=== PATIENT | female | born 1965 | race African-American/Black ===

== ENCOUNTER 2016-07-17 08:19 | Emergency (ER) | payer BC ==
[2016-07-17 08:30] VITALS: BP 128/74; PULSE 88; TEMP 97.7; BMI 33.3
--- NOTE | 2016-07-17 09:36 | PDOC ---
History of Present Illness - General Chief Complaint: Pain, Acute Stated Complaint: RT ARM SWELLING (SPIDER BITE) Time Seen by Provider: 07/17/16 09:15 History Source: Patient Exam Limitations: No Limitations - History of Present Illness Initial Comments: 07/17/16 09:40 51 yr female with spider bite to right elbow 2 weeks ago at work. Pt was on Doxy 100mg bid for 10 days and prednisone. Pt states symptoms imporved, then started to "flare up" again yesterday. Pt has mild redness and swelling to the elbow.no fever or chills. Pt has FROM of the elbow no distress. Severity: Yes: mild Location: reports: extremities (right elbow) Past History - Past Medical History Allergies/Adverse Reactions: Allergies Allergy/AdvReac Type Severity Reaction Status Date / Time No Known Allergies Allergy Verified 07/17/16 08:24 Home Medications: Ambulatory Orders Atorvastatin Ca [Lipitor] 20 mg PO DAILY 08/18/15 Lisinopril 10 mg PO DAILY 08/18/15 Sitagliptin Phos/Metformin HCl [Janumet 50-500 mg Tablet] 1 tab PO BID 08/18/15 Zolpidem Tartrate 10 mg PO HS 08/18/15 Oxycodone HCl/Acetaminophen [Percocet 5-325 mg Tablet] 1 tab PO Q6H PRN #60 tablet MDD 4 09/09/15 Ketorolac Tromethamine [Toradol] 10 mg PO Q6H #20 tablet 09/11/15 Sulfamethoxazole/Trimethoprim [Bactrim Ds Tablet] 1 each PO BID #14 tablet 07/17 Anemia: No Asthma: No Cancer: No Cardiac Disorders: No CVA: No COPD: No CHF: No Dementia: No Diabetes: Yes (X 1 YEAR) GI Disorders: No Disorders: No HTN: No Hypercholesterolemia: Yes Liver Disease: No Seizures: No Thyroid Disease: No - Surgical History Abdominal Surgery: No Appendectomy: No Cardiac Surgery: No Cholecystectomy: No Lung Surgery: No Neurologic Surgery: Yes (left hip replacement 2015) Orthopedic Surgery: Yes (LAMINECTOMY 20 YRS AGO, RIGHT KNEE ARTHROSCOPY) - Psycho/Social/Smoking Cessation Hx Suicidal Ideation: No Smoking History: Former smoker Have you smoked in the past 12 months: No If you are a former smoker, when did you quit?: 2006 Information on smoking cessation initiated: No Hx Alcohol Use: No Drug/Substance Use Hx: No Substance Use Type: None Hx Substance Use Treatment: No Review of Systems - Review of Systems Able to Perform ROS?: Yes Is the patient limited Wolof proficient: No Constitutional: No: Symptoms Reported HEENTM: No: Symptoms Reported Respiratory: No: Symptoms reported Cardiac (ROS): No: Symptoms Reported ABD/GI: No: Symptoms Reported : No: Symptoms Reported Musculoskeletal: Yes: See HPI *Physical Exam - Vital Signs Last Vital Signs Temp Pulse Resp BP Pulse Ox 97.7 F 88 16 128/74 96 07/17/16 08:24 07/17/16 08:24 07/17/16 08:24 07/17/16 08:24 07/17/16 08:24 - Physical Exam General Appearance: Yes: Nourished, Appropriately Dressed HEENT: positive: EOMI, NICK Neck: positive: Supple Respiratory/Chest: positive: Lungs Clear, Normal Breath Sounds Cardiovascular: positive: Regular Rhythm, Regular Rate Gastrointestinal/Abdominal: positive: Normal Bowel Sounds, Soft Musculoskeletal: positive: Normal Inspection Extremity: positive: Normal Capillary Refill, Normal Inspection, Normal Range of Motion, Swelling, Erythema (right elbow, trace swelling, trace erythema, FROM no bony tenderness) Integumentary: positive: Normal Color, Dry, Warm Neurologic: positive: Fully Oriented, Alert, Normal Mood/Affect, Normal Response , Motor Strength 5/5 Medical Decision Making - Medical Decision Making 07/17/16 09:43 cc: right elbow spider bite 2 weeks ago improved with Doxy then started to get worse again yesterday will xray to r/o FB r/o abscess, however ther is no fluctuance or induaration appreciated will place on Bactrim for 7 days continue topical cortiosne for itching pt agrees with plan all questions asked and answered *DC/Admit/Observation/Transfer Diagnosis at time of Disposition: Spider bite Qualifiers: Encounter type: initial encounter Injury intent: accidental or unintentional Qualified Code(s): T63.301A - Toxic effect of unspecified spider venom, accidental (unintentional), initial encounter - Discharge Dispostion Disposition: HOME Condition at time of disposition: Good - Prescriptions Prescriptions: Sulfamethoxazole/Trimethoprim [Bactrim Ds Tablet] 1 each PO BID #14 tablet - Referrals Referrals: Tiffany Huerta MD [Primary Care Provider] - - Patient Instructions Additional Instructions: take bactrim for 7 days apply topical cortisone ointment three times a day 'you can also apply warm moist compresses to the elbow area 4-5 times a day follow with your primary care doctor Tuesday or Tuesday if no improvement
== END 2016-07-17 10:01 | disposition home or self-care (01) ==
LOC: JERFT 08:19
DX: T63.391A Toxic effect of venom of other spider, accidental (unintentional), initial encounter (principal); Y92.118 Other place in children's home and orphanage as the place of occurrence of the external cause; Y93.89 Activity, other specified; Y99.0 Civilian activity done for income or pay
CPT/HCPCS: 73070-TC-RT; 99281-25

== ENCOUNTER 2017-03-16 20:31 | Emergency (ER) | payer BC ==
--- NOTE | 2017-03-16 20:38 | PDOC ---
History of Present Illness - General History Source: Patient Exam Limitations: No Limitations - History of Present Illness Initial Comments: 03/16/17 20:49 51 yr old female, with significant past medical history of DM, HLD, who presents to the emergency room complaining of 1 day of generalized malaise, fever, body aches, nonproductive cough, and chest discomfort. She states that chest discomfort is midsternal, nonradiating, and exacerbated when taking a deep breath. She notes some episodes of diarrhea. The patient took advil at 2: 00pm this afternoon. Denies nausea, vomiting. Denies urinary changes, dysuria. Denies palpitations. Denies recent travel. Denies sick contacts. Allergies: NKDA PCP: Dr. Tiffany Huerta <Janeth Turner - Last Filed: 03/16/17 22:56> - General History Source: Patient <Yosef Olsen - Last Filed: 03/17/17 00:52> - General Stated Complaint: CHEST PAIN Time Seen by Provider: 03/16/17 20:36 Past History <Janeth Turner - Last Filed: 03/16/17 22:56> - Past Medical History Anemia: No Asthma: No Cancer: No Cardiac Disorders: No CVA: No COPD: No CHF: No Dementia: No Diabetes: Yes (X 1 YEAR) GI Disorders: No Disorders: No HTN: No Hypercholesterolemia: Yes Liver Disease: No Seizures: No Thyroid Disease: No - Surgical History Abdominal Surgery: No Appendectomy: No Cardiac Surgery: No Cholecystectomy: No Lung Surgery: No Neurologic Surgery: Yes (left hip replacement 2016) Orthopedic Surgery: Yes (LAMINECTOMY 20 YRS AGO, RIGHT KNEE ARTHROSCOPY) - Suicide/Smoking/Psychosocial Hx Smoking History: Former smoker Have you smoked in the past 12 months: No If you are a former smoker, when did you quit?: 2006 Hx Alcohol Use: No Drug/Substance Use Hx: No Substance Use Type: None Hx Substance Use Treatment: No <Yosef Olsen - Last Filed: 03/17/17 00:52> - Past Medical History Allergies/Adverse Reactions: Allergies Allergy/AdvReac Type Severity Reaction Status Date / Time No Known Allergies Allergy Verified 03/16/17 23:21 Home Medications: Ambulatory Orders Atorvastatin Ca [Lipitor] 20 mg PO DAILY 08/18/15 Lisinopril 10 mg PO ASDIR 08/18/15 Sitagliptin Phos/Metformin HCl [Janumet 50-500 mg Tablet] 1 tab PO BID 08/18/15 Zolpidem Tartrate 10 mg PO HS 08/18/15 Amox-Tr/K Cl [Augmentin 875Mg Tablet] 1 tab PO BID #20 tablet 03/17/17 Azithromycin [Zithromax -] 250 mg PO UTDICT #6 tab 03/17/17 Fluconazole [Diflucan -] 100 mg PO ONCE #1 tablet 03/17/17 Ibuprofen 800 mg PO TID #30 tablet 03/17/17 Review of Systems - Review of Systems Able to Perform ROS?: Yes Comments:: 03/16/17 20:49 CONSTITUTIONAL: Present: fever, generalized malaise, body aches. Absent: no chills EYES: Absent: visual changes ENT: Absent: ear pain, no sore throat CARDIOVASCULAR: Present: chest pain. Absent: no palpitations RESPIRATORY: Present: non productive cough Absent: no SOB GI: Absent: abdominal pain, no nausea, no vomiting, no constipation, no diarrhea GENITOURINARY: Absent: dysuria, no frequency, no hematuria MUSCULOSKELETAL: Absent: back pain, no arthralgia, no myalgia SKIN: Absent: rash <Janeth Turner - Last Filed: 03/16/17 22:56> *Physical Exam - Vital Signs Last Vital Signs Temp Pulse Resp BP Pulse Ox 103.0 F H 100 H 18 160/96 99 03/16/17 20:39 03/16/17 20:39 03/16/17 20:39 03/16/17 20:39 03/16/17 20:39 - Physical Exam Comments: 03/16/17 20:49 GENERAL: Well-appearing, well-nourished. No apparent distress. HEENT: Normocephalic, atraumatic. PERRL, EOM intact. CARDIOVASCULAR: Tachycardic. Normal S1, S2. Regular rhythm. PULMONARY: Clear to auscultation bilaterally. ABDOMEN: Soft, non-distended, non-tender. EXTREMITIES: Normal ROM in all four extremities. No gross deformities. SKIN: Warm, dry. No rash NEUROLOGICAL: No focal neurological deficits. <Janeth Turner - Last Filed: 03/16/17 22:56> Heart Score/ECG Review #1 03/16/17 20:50 Sinus tachycardia with a rate of 129bpm <Janeth Turner - Last Filed: 03/16/17 22:56> ED Treatment Course - LABORATORY CBC & Chemistry Diagram: 03/16/17 20:45 03/16/17 21:00 - RADIOLOGY Radiograph Interpretation: 03/16/17 22:56 EXAM#: TYPE/EXAM: RESULT: [id number] RAD/CHEST PA LAT Rule out infiltrates Chest x-ray, PA and lateral. Since prior chest x-ray dated 04/14/2006, the cardiac silhouette remains within normal limits in size and the lung is clear. Mediastinum and visualized osseous structures appear intact Impression No significant interval change or acute lung disease is present Reported By: Abbey Mario MD 03/16/172221 <Janeth Turner - Last Filed: 03/16/17 22:56> - LABORATORY CBC & Chemistry Diagram: 03/16/17 20:45 03/16/17 21:00 <Yosef Olsen - Last Filed: 03/17/17 00:52> Medical Decision Making - Medical Decision Making 03/17/17 00:05 Dr. Olsen: The scribe's documentation has been prepared under my direction and personally reviewed by me in its entirery. I confirm that the note above accurately reflects all work, treatment, procedures, and medical decision making performed by me. <Yosef Olsen - Last Filed: 03/17/17 00:52> *DC/Admit/Observation/Transfer - Attestations Scribe Attestion: 03/16/17 20:49 Documentation prepared by NAGI Boyd, acting as medical assembly for Yosef Olsen MD. <Janeth Turner - Last Filed: 03/16/17 22:56> - Discharge Dispostion Admit: No <Yosef Olsen - Last Filed: 03/17/17 00:52> Diagnosis at time of Disposition: Bronchitis - Discharge Dispostion Disposition: HOME Condition at time of disposition: Stable - Prescriptions Prescriptions: Amox-Tr/K Cl [Augmentin 875Mg Tablet] 1 tab PO BID #20 tablet Fluconazole [Diflucan -] 100 mg PO ONCE #1 tablet Ibuprofen 800 mg PO TID #30 tablet Azithromycin [Zithromax -] 250 mg PO UTDICT #6 tab - Referrals Referrals: Vic Walter MD [Staff Physician] - - Patient Instructions Printed Discharge Instructions: DI for Acute Bronchitis Additional Instructions: don't fill the Zithromax . Drink plenty of fluids and rest. Follow up with your docotor - Post Discharge Activity Forms/Work/School Notes: Back to Work
[2017-03-16] MEDS ORDERED: ACETAMINOPHEN 325 MG TABLET (FP) PO ONE (20:39)
[2017-03-16] MEDS ORDERED: SODIUM CHLORIDE 1,000 ML IV STA (20:40)
[2017-03-16 20:44] VITALS: BP 160/96; BMI 29.1
[2017-03-16] MEDS ORDERED: ACETAMINOPHEN INJECTION 100 ML IVPB ONE (21:00)
[2017-03-16 21:01] LABS: BASOPHIL 0.4 % (0-2.0); EOSINOPHIL 0.3 % (0-4.5); MCHC 33.5 g/dl (32.0-36.0); MEAN CELL VOLUME 89.6 fl (80-96); MEAN PLT VOLUME 8.3 fl (7.5-11.1); NEUTROPHILS 80.5 % (42.8-82.8); PLATELET COUNT 280 K/MM3 (134-434); RDW 14.1 % (11.6-15.6)
[2017-03-16 21:38] LABS: INR 1.07 (0.82-1.09); PROTHROMBIN TIME (PATIENT) 12.1 SEC (9.98-11.88)
[2017-03-16 21:48] LABS: ALBUMIN 3.8 g/dl (3.4-5.0); ANION GAP 12 (8-16); BILIRUBIN,TOTAL 0.3 mg/dL (0.2-1.0); CALCIUM 8.8 mg/dL (8.5-10.1); CO2 22 mmol/L (21-32); CREATININE 0.9 mg/dL (0.55-1.02); GLUCOSE,RANDOM 151 mg/dL (74-106); SGOT/AST 14 U/L (15-37); SGPT/ALT 25 U/L (12-78); TOT PROT 7.1 g/dl (6.4-8.2)
[2017-03-16 21:51] LABS: ALK PHOS 124 U/L (45-117); CPK 225 IU/L (26-192); TROPONIN I < 0.02 ng/ml (0.00-0.05)
[2017-03-16] MEDS ORDERED: AZITHROMYCIN 250 MG TABLET PO STA (22:17)
[2017-03-16 22:19] LABS: URINE APPEARANCE CLEAR; URINE BILIRUBIN NEGATIVE (NEGATIVE); URINE BLOOD 1+ (NEGATIVE); URINE COLOR LTYELLOW; URINE GLUCOSE (UA) NEGATIVE (NEGATIVE); URINE KETONE NEGATIVE (NEGATIVE); URINE NITRITE NEGATIVE (NEGATIVE); URINE PROTEIN NEGATIVE (NEGATIVE); URINE UROBILINOGEN NEGATIVE mg/dL (0.2-1.0)
[2017-03-16 22:45] LABS: URINE BACTERIA MODERATE /hpf (NONE SEEN); URINE MUCUS RARE; URINE RBC 1 /hpf (0-3); URINE WBC 1 /hpf (3-5)
[2017-03-16] MEDS ORDERED: CEFTRIAXONE 50 ML ONE (22:45)
[2017-03-16] MEDS ORDERED: AZITHROMYCIN 250 MG TABLET ONE (23:14)
[2017-03-16 23:20] VITALS: PULSE 94; TEMP 98.3
[2017-03-17 11:04] LABS: URINE LEUK ESTERASE Negative (NEGATIVE)
--- NOTE | 2017-03-17 11:55 | EKG ---
Test Reason : Blood Pressure : / mmHG Vent. Rate : 129 BPM Atrial Rate : 131 BPM P-R Int : 140 ms QRS Dur : 072 ms QT Int : 306 ms P-R-T Axes : 052 017 045 degrees QTc Int : 448 ms SINUS TACHYCARDIA OTHERWISE NORMAL ECG WHEN COMPARED WITH ECG OF 22-APR-2006 07:20, VENT. RATE HAS INCREASED BY [address] NO LONGER ELEVATED IN ANTERIOR LEADS NONSPECIFIC T WAVE ABNORMALITY NOW EVIDENT IN ANTERIOR LEADS Confirmed by KATELYNN TELLEZ MD ([id number]) on 03/17/2017 11:54:56 AM Referred By: Confirmed By:KATELYNN TELLEZ MD
== END 2017-03-17 00:22 | disposition home or self-care (01) ==
LOC: JER 20:31
PROC: 3E03329 Introduction of Other Anti-infective into Peripheral Vein, Percutaneous Approach (ICD-10-PCS; principal; 2017-03-16)
PROC: 3E0337Z Introduction of Electrolytic and Water Balance Substance into Peripheral Vein, Percutaneous Approach (ICD-10-PCS; 2017-03-16)
DX: J20.9 Acute bronchitis, unspecified (principal)
CPT/HCPCS: 36415; 71020-TC; 80053; 81003; 81015; 82550; 82553; 83605; 84484; 85025; 85610; 87040; 87086; 87804; 93005; 93010; 99283-25

== ENCOUNTER 2020-04-28 04:50 | Day surgery (SDC) | payer BC ==
[2020-04-25 12:03] VITALS: BMI 34.3
[2020-04-28] MEDS ORDERED: LIDOCAINE HCL 1%, 10 MG/ML (20ML VIAL) ONE (07:26)
[2020-04-28] MEDS ORDERED: PROPOFOL 20 ML ONE ×2 (07:44→08:35)
[2020-04-28] MEDS ORDERED: MIDAZOLAM HCL 2 MG/2 ML SINGLE DOSE VIAL ONE (07:44)
[2020-04-28] MEDS ORDERED: LACTATED RINGERS SOLUTION 1,000 ML IV SCH (08:00)
[2020-04-28] MEDS ORDERED: oxyCODONE HCL 5 MG TABLET PO PRN (08:00)
[2020-04-28] MEDS ORDERED: ONDANSETRON 4 MG/2 ML VIAL IVPUSH PRN (08:00)
[2020-04-28] MEDS ORDERED: ceFAZolin SODIUM 1 GM VIAL ONE (08:10)
[2020-04-28] MEDS ORDERED: ceFAZolin 2 GRAM PREMIX BAG IVPB ONE (08:15)
[2020-04-28] MEDS ORDERED: LIDOCAINE HCL 1%, 10 MG/ML (20ML VIAL) NR ONE (08:25)
[2020-04-28] MEDS ORDERED: BUPIVACAINE HCL/PF 0.5% (5 MG/ML) 30 ML VIAL IJ ONE (08:25)
[2020-04-28 09:54] VITALS: TEMP 97.1
[2020-04-28 11:18] VITALS: BP 128/76; PULSE 73
== END 2020-04-28 11:20 | disposition home or self-care (01) ==
LOC: JASU-SURG 04:50
PROVIDERS: ATTEND Orthopaedic Surgery
PROC: 0LN80ZZ Release Left Hand Tendon, Open Approach (ICD-10-PCS; principal; 2020-04-28 08:00)
DX: M65.312 Trigger thumb, left thumb (principal); I10 Essential (primary) hypertension; E11.9 Type 2 diabetes mellitus without complications
CPT/HCPCS: 82962; 94760

== ENCOUNTER 2024-02-27 06:47 | Inpatient (IN) | payer BC ==
[2024-02-27] MEDS ORDERED: ACETAMINOPHEN INJECTION 100 ML ONE (09:33)
[2024-02-27] MEDS: ACETAMINOPHEN 1000 MG/100 ML BAG IVPB ONE (09:40)
[2024-02-27 09:41] LABS: EPI CELLS 3 /uL (0-25.1); HYALINE CASTS 1 /uL (0-3.1); PH,URINE 5.5 (5.0-8.0); URINE APPEARANCE CLEAR; URINE BACTERIA 3451 /uL (0-1359); URINE BILIRUBIN NEGATIVE (NEGATIVE); URINE COLOR YELLOW; URINE GLUCOSE (UA) NEGATIVE (NEGATIVE); URINE KETONE NEGATIVE (NEGATIVE); URINE LEUK ESTERASE 1+ (NEGATIVE); URINE NITRITE POSITIVE (NEGATIVE); URINE PROTEIN NEGATIVE (NEGATIVE); URINE RBC 5 /uL (0-23.9); URINE UROBILINOGEN 0.2 mg/dL (0.2-1.0); URINE WBC 114 /uL (0-25.8)
[2024-02-27 09:43] LABS: BASO % 0.6 % (0-2.0); EOS % 4.5 % (0-4.5); HEMATOCRIT 41.9 % (32.4-45.2); HEMOGLOBIN 13.9 GM/dL (10.7-15.3); LYMPH % 29.8 % (8-40); MCH 30.4 pg (25.7-33.7); MCHC 33.1 g/dl (32.0-36.0); MEAN CELL VOLUME 91.6 fl (80-96); MEAN PLT VOLUME 8.6 fl (7.5-11.1); MONO % 8.4 % (3.8-10.2); NEUT % 56.7 % (42.8-82.8); PLATELET COUNT 322 10^3/uL (134-434); RBC 4.57 M/mm3 (3.60-5.2); RDW 13.8 % (11.6-15.6); WHITE BLOOD COUNT 7.5 K/mm3 (4.0-10.0)
[2024-02-27 09:56] LABS: POTASSIUM 4.6 mmol/L (3.5-5.1)
[2024-02-27 09:58] LABS: CALCIUM 9.4 mg/dL (8.5-10.1)
[2024-02-27 10:00] LABS: ALBUMIN 3.8 g/dl (3.4-5.0); BLOOD UREA NITROGEN 10.3 mg/dL (7-18)
[2024-02-27 10:03] LABS: CREATININE 0.7 mg/dL (0.55-1.3)
[2024-02-27 10:04] LABS: BILIRUBIN,TOTAL 0.6 mg/dL (0.2-1); TOT PROT 7.5 g/dl (6.4-8.2)
[2024-02-27 10:28] LABS: URINE CRYSTALS PRESENT /hpf
[2024-02-27] MEDS ORDERED: CEFTRIAXONE 1 GM/50 ML BAG ONE (10:36)
[2024-02-27] MEDS: CEFTRIAXONE 1,000 MG in DEXTROSE 5%-WATER - 50 ML IVPB ONE (10:40)
[2024-02-27] MEDS ORDERED: morphine SULFATE 4 MG/ML VIAL ONE ×2 (11:43→15:41)
[2024-02-27] MEDS: morphine CARPU-JECT 4 MG/1 ML DISP.SYRIN IVPUSH ONE ×2 (11:58→15:52)
[2024-02-27] MEDS ORDERED: ONDANSETRON 4 MG/2 ML VIAL ONE (13:38)
[2024-02-27] MEDS: ONDANSETRON 4 MG/2 ML VIAL IVPUSH ONE (14:04)
[2024-02-27] MEDS: ONDANSETRON 4 MG/2 ML VIAL IM ONE (14:09)
[2024-02-27] MEDS ORDERED: ACETAMINOPHEN 500 MG TABLET (FP) PO PRN (15:58)
[2024-02-27 18:31] VITALS: RESP 18
[2024-02-27] MEDS: morphine SULFATE 4 MG/ML VIAL IVPUSH ONE (21:15)
[2024-02-27] MEDS: HEPARIN NA (PORCINE) 5,000 UNITS/ML 1ML VIAL SQ SCH (21:19)
[2024-02-27] MEDS: ZOLPIDEM TARTRATE 5 MG TABLET PO PRN (23:00)
[2024-02-28] MEDS: morphine SULFATE 4 MG/ML VIAL IVPUSH ONE (05:49)
[2024-02-28 08:11] VITALS: BMI 33.4
[2024-02-28] MEDS: CEFTRIAXONE 1 GM in DEXTROSE 5%-WATER - 50 ML IVPB SCH (10:07)
[2024-02-28] MEDS: ATORVASTATIN CA 20 MG TABLET (FP) PO SCH (10:07)
[2024-02-28] MEDS: KETOROLAC TROMETHAMINE 15 MG/ML VIAL IVPUSH PRN (10:12)
[2024-02-28 11:23] LABS: EOS % 5.2 % (0-4.5); HEMATOCRIT 39.1 % (32.4-45.2); HEMOGLOBIN 12.9 GM/dL (10.7-15.3); LYMPH % 42.6 % (8-40); MCH 30.4 pg (25.7-33.7); MCHC 32.9 g/dl (32.0-36.0); MEAN CELL VOLUME 92.3 fl (80-96); MEAN PLT VOLUME 8.7 fl (7.5-11.1); MONO % 6.9 % (3.8-10.2); NEUT % 44.3 % (42.8-82.8); PLATELET COUNT 296 10^3/uL (134-434); RBC 4.24 M/mm3 (3.60-5.2); RDW 13.8 % (11.6-15.6); WHITE BLOOD COUNT 5.5 K/mm3 (4.0-10.0)
[2024-02-28 11:31] LABS: POTASSIUM 3.8 mmol/L (3.5-5.1)
[2024-02-28 11:40] LABS: BLOOD UREA NITROGEN 12.3 mg/dL (7-18); CALCIUM 9.3 mg/dL (8.5-10.1)
[2024-02-28 11:43] LABS: CREATININE 0.7 mg/dL (0.55-1.3)
[2024-02-28] MEDS: POLYETHYLENE GLYCOL (HEALTHYLAX) 3350 17 GM PACKET PO SCH (12:09)
[2024-02-28] MEDS: GLYCERIN 1 RECTAL SUPPOSITORY, ADULT RC ONE (14:43)
[2024-02-28] MEDS ORDERED: KETOROLAC TROMETHAMINE 15 MG/ML VIAL IVPUSH PRN (16:00)
[2024-02-28] MEDS: KETOROLAC TROMETHAMINE 15 MG/ML VIAL IVPUSH SCH (16:47)
[2024-02-28] MEDS: INSULIN ASPART SLIDING SCALE (NOVOLOG) 1 VIAL SQ SCH (16:56)
[2024-02-28] MEDS: GLYCERIN 1 RECTAL SUPPOSITORY, ADULT RC PRN (18:14)
[2024-02-28] MEDS: SENNOSIDES 8.8 MG/5 ML SYRUP PO SCH (21:31)
[2024-02-29] MEDS: MEROPENEM 1 GM in DEXTROSE 5%-WATER 100 ML IVPB SCH (13:11)
[2024-02-29] MEDS: ERTAPENEM SODIUM 1 GM in SODIUM CHLORIDE 50 ML IVPB ONE (13:12)
[2024-02-29] MEDS: PHENAZOPYRIDINE HCL 100 MG TABLET (FP) PO SCH (13:34)
[2024-03-01 10:27] LABS: HEMATOCRIT 38.4 % (32.4-45.2); MCH 30.7 pg (25.7-33.7); MCHC 33.9 g/dl (32.0-36.0); MEAN CELL VOLUME 90.6 fl (80-96); MEAN PLT VOLUME 8.7 fl (7.5-11.1); PLATELET COUNT 293 10^3/uL (134-434); RBC 4.24 M/mm3 (3.60-5.2); RDW 13.8 % (11.6-15.6); WHITE BLOOD COUNT 5.2 K/mm3 (4.0-10.0)
[2024-03-01] MEDS: oxyCODONE HCL 5 MG TABLET PO PRN (15:24)
[2024-03-02] MEDS: ERTAPENEM SODIUM 1 GM in SODIUM CHLORIDE 50 ML IVPB ONE (06:42)
[2024-03-02 09:45] VITALS: BP 127/81; PULSE 97; TEMP 97.9
== END 2024-03-02 14:00 | disposition home health service (06) | DRG 690 ==
LOC: JER 06:47 → OBSVTOIN 15:36 → UNDOADMOB 15:36 → JERBED 15:36 → INTOOBSV 15:36 → JERBED 16:01 → J6S 20:07 → JERBED 20:07 → J6S 20:07 → OBSVTOIN 03-01 16:31
PROVIDERS: ADMIT Internal Medicine; ATTEND Internal Medicine
PROC: 02HV33Z Insertion of Infusion Device into Superior Vena Cava, Percutaneous Approach (ICD-10-PCS; principal; 2024-03-01)
PROC: B548ZZA Ultrasonography of Superior Vena Cava, Guidance (ICD-10-PCS; 2024-03-01)
DX: N39.0 Urinary tract infection, site not specified (principal); E11.9 Type 2 diabetes mellitus without complications; Z79.84 Long term (current) use of oral hypoglycemic drugs; B96.20 Unspecified Escherichia coli [E. coli] as the cause of diseases classified elsewhere; K42.9 Umbilical hernia without obstruction or gangrene
CPT/HCPCS: 36415; 36569; 74177-TC; 76830-TC; 76856-TC; 80048; 80053; 81003; 82962; 85025; 85027; 87086; 87186; 99285-25; G0378; J0131; J1644; Q9967

== ENCOUNTER 2024-09-06 14:52 | Observation (INO) | payer BC ==
[2024-09-06] MEDS ORDERED: ACETAMINOPHEN INJECTION 100 ML ONE ×2 (16:33→21:35)
[2024-09-06] MEDS ORDERED: ONDANSETRON 4 MG/2 ML VIAL ONE (16:40)
[2024-09-06] MEDS ORDERED: morphine SULFATE 4 MG/ML VIAL ONE (16:40)
[2024-09-06 16:50] LABS: ABSOLUTE IMMATURE GRANULOCYTES 0.02 x10^3/uL (0.0-0.031); BASOPHILS # 0.04 x10^3/uL (0.01-0.08); EOSINOPHILS # 0.41 x10^3/uL (0.04-0.36); HEMATOCRIT 40.8 % (34.1-44.9); HEMOGLOBIN 13.2 g/dL (11.2-15.7); MCHC 32.4 g/dl (32.2-35.5); MEAN CELL VOLUME 92.1 fl (79.4-94.8); MEAN PLT VOLUME 10.8 fl (9.4-12.3); MONOCYTE # 0.79 x10^3/uL (0.24-0.86); MONOCYTE % 9.7 % (4.7-12.5); PLATELET COUNT 356 x10^3/uL (182-369); RDW 13.3 % (12.3-16.6)
[2024-09-06 16:53] LABS: INR 1.12 (0.83-1.09); PROTHROMBIN TIME (PATIENT) 12.3 SEC (9.7-13.0)
[2024-09-06 16:55] LABS: ACTIVATED PTT 29.3 SECONDS (25.2-36.5)
[2024-09-06] MEDS: ONDANSETRON 4 MG/2 ML VIAL IVPUSH ONE (17:00)
[2024-09-06] MEDS: morphine CARPU-JECT 4 MG/1 ML DISP.SYRIN IVPUSH ONE (17:00)
[2024-09-06] MEDS: ACETAMINOPHEN 1000 MG/100 ML BAG IVPB ONE (17:00)
[2024-09-06 17:13] LABS: POTASSIUM 3.9 mmol/L (3.5-5.1)
[2024-09-06 17:14] LABS: CALCIUM 9.3 mg/dL (8.5-10.1)
[2024-09-06 17:14] LABS: EPI CELLS 23 /uL (0-25.1); HYALINE CASTS 1 /uL (0-3.1); URINE APPEARANCE CLEAR; URINE BACTERIA 175 /uL (0-1359); URINE BILIRUBIN NEGATIVE (NEGATIVE); URINE COLOR YELLOW; URINE GLUCOSE (UA) NEGATIVE (NEGATIVE); URINE KETONE TRACE (NEGATIVE); URINE LEUK ESTERASE NEGATIVE (NEGATIVE); URINE NITRITE NEGATIVE (NEGATIVE); URINE PROTEIN NEGATIVE (NEGATIVE); URINE RBC 14 /uL (0-23.9); URINE WBC 19 /uL (0-25.8)
[2024-09-06 17:15] LABS: ALBUMIN 3.8 g/dl (3.4-5.0); BLOOD UREA NITROGEN 9.1 mg/dL (7-18)
[2024-09-06 17:18] LABS: CREATININE 0.7 mg/dL (0.55-1.3)
[2024-09-06 17:20] LABS: BILIRUBIN,TOTAL 0.4 mg/dL (0.2-1)
[2024-09-06] MEDS ORDERED: oxyCODONE HCL 5 MG TABLET PO PRN ×5 (21:25→22:43)
[2024-09-06] MEDS: ACETAMINOPHEN 1000 MG/100 ML BAG IVPB PRN (21:40)
[2024-09-06] MEDS ORDERED: CELECOXIB 200 MG CAPSULE PO PRN (21:53)
[2024-09-06 23:04] VITALS: BMI 32.2
[2024-09-06] MEDS: ZOLPIDEM TARTRATE 5 MG TABLET PO PRN (23:18)
[2024-09-06] MEDS: INSULIN ASPART SLIDING SCALE (NOVOLOG) 1 VIAL SQ SCH (23:19)
[2024-09-06] MEDS: ATORVASTATIN CA 20 MG TABLET (FP) PO SCH (23:19)
[2024-09-07] MEDS: ACETAMINOPHEN 1000 MG/100 ML BAG IVPB PRN ×2 (02:43→11:15)
[2024-09-07] MEDS ORDERED: INSULIN ASPART SLIDING SCALE (NOVOLOG) 1 VIAL SQ ONE (05:29)
[2024-09-07 07:53] LABS: HEMATOCRIT 39.7 % (34.1-44.9); HEMOGLOBIN 12.7 g/dL (11.2-15.7); MEAN CELL VOLUME 93.2 fl (79.4-94.8); MEAN PLT VOLUME 10.4 fl (9.4-12.3); PLATELET COUNT 279 x10^3/uL (182-369); RDW 13.4 % (12.3-16.6)
[2024-09-07 08:45] LABS: POTASSIUM 4.1 mmol/L (3.5-5.1)
[2024-09-07 08:57] LABS: ALBUMIN 3.5 g/dl (3.4-5.0); CALCIUM 9.2 mg/dL (8.5-10.1)
[2024-09-07 08:58] LABS: MAGNESIUM 1.8 mg/dL (1.8-2.4)
[2024-09-07 09:00] LABS: CREATININE 0.7 mg/dL (0.55-1.3); PHOSPHOROUS 4.2 mg/dL (2.5-4.9)
[2024-09-07 09:01] LABS: BILIRUBIN,TOTAL 0.5 mg/dL (0.2-1); TOT PROT 6.2 g/dl (6.4-8.2)
[2024-09-07 09:52] VITALS: RESP 20
[2024-09-07] MEDS ORDERED: oxyCODONE HCL 5 MG TABLET PO PRN ×2 (11:05→11:06)
[2024-09-07 13:46] VITALS: BP 136/78; PULSE 72; TEMP 98
[2024-09-07] MEDS ORDERED: DOCUSATE SODIUM 100 MG CAPSULE (FP) PO SCH (22:00)
== END 2024-09-07 13:48 | disposition home or self-care (01) ==
LOC: JER 14:52 → JERBED 19:17 → J8W 22:32
PROVIDERS: ADMIT Hospitalist; ATTEND Nurse Practitioner Acute Care
PROC: 3E033NZ Introduction of Analgesics, Hypnotics, Sedatives into Peripheral Vein, Percutaneous Approach (ICD-10-PCS; principal; 2024-09-06)
PROC: 3E033GC Introduction of Other Therapeutic Substance into Peripheral Vein, Percutaneous Approach (ICD-10-PCS; 2024-09-06)
DX: R10.32 Left lower quadrant pain (principal); N83.8 Other noninflammatory disorders of ovary, fallopian tube and broad ligament; E11.9 Type 2 diabetes mellitus without complications; E78.5 Hyperlipidemia, unspecified; Z85.3 Personal history of malignant neoplasm of breast; Z91.148 Patient's other noncompliance with medication regimen for other reason
CPT/HCPCS: 36415; 74177-TC; 80053; 81003; 82962; 83735; 84100; 85025; 85027; 85610; 85730; 86850; 86900; 86901; 87086; 93005; 93010; 99285-25; G0378; J0131